=== PATIENT | female | born 2000 | race African-American/Black ===

== ENCOUNTER 2019-08-07 12:35 | Emergency (ER) | payer OTHER ==
[~2019-08-07] VITALS: Ht 160 cm; Wt 57.6 kg
[2019-08-07] MEDS ORDERED: PRENATAL VIT OTC (12:44)
[2019-08-07] MEDS ORDERED: ONDANSETRON 4MG/2ML VIAL (J2405) IV ONE (15:15)
[2019-08-07] MEDS ORDERED: NS 1,000 ML IV ONE (15:15)
[2019-08-07 16:06] LABS: BASO % 0.3 % (0.0-1.0); EOS # 0.1 10^3/uL (0.0-0.5); EOS % 0.8 % (0.0-3.0); HEMATOCRIT 38.2 % (36.0-47.0); HEMOGLOBIN 12.4 g/dl (12.0-15.5); LYMPH # 1.7 10^3/uL (1.5-5.0); LYMPH % 23.3 % (24.0-44.0); MEAN CORPUSCULAR HGB CONC 32.5 g/dl (32.0-36.5); MEAN CORPUSCULAR VOLUME 86.2 fl (80.0-96.0); MONO # 0.4 10^3/uL (0.0-0.8); NEUTROPHILS # 5.2 10^3/uL (1.5-8.5); NEUTROPHILS % 70.3 % (36.0-66.0); PLATELET COUNT, AUTOMATED 223 10^3/uL (150-450); RED BLOOD COUNT 4.43 10^6/uL (4.00-5.40); WHITE BLOOD COUNT 7.4 10^3/uL (4.0-10.0)
[2019-08-07 16:24] LABS: ALBUMIN 3.7 GM/DL (3.2-5.2); ALT/SGPT 21 U/L (12-78); BILIRUBIN,DIRECT 0.1 MG/DL (0.0-0.2); BILIRUBIN,TOTAL 0.3 MG/DL (0.2-1.0); BLOOD UREA NITROGEN 4 MG/DL (7-18); CALCIUM LEVEL 9.4 MG/DL (8.5-10.1); CARBON DIOXIDE LEVEL 24 MEQ/L (21-32); CHLORIDE LEVEL 104 MEQ/L (98-107); CREATININE FOR GFR 0.53 MG/DL (0.55-1.30); GLUCOSE, FASTING 69 MG/DL (70-100); LIPASE 34 U/L (73-393); POTASSIUM SERUM 3.6 MEQ/L (3.5-5.1); SODIUM LEVEL 137 MEQ/L (136-145); TOTAL PROTEIN 7.6 GM/DL (6.4-8.2)
[2019-08-07] MEDS ORDERED: ONDA4TAB6 PO (18:58)
[2019-08-07 19:10] LABS: CHLAMYDIA DNA AMPLIFICATION POSITIVE (NEGATIVE); GC DNA AMPLIFICATION NEGATIVE (NEGATIVE)
[2019-08-07] MEDS ORDERED: AZITHROMYCIN 250 MG TAB PO ONE (19:15)
[2019-08-07 19:44] VITALS: BP 137/88
--- NOTE | 2019-08-08 07:11 | REP ---
Obstetric sonography: History: Supervision of . Abdominal and pelvic pain. Findings: Scanning through the gravid uterus demonstrates a viable single intrauterine gestation in a cephalic lie. motion is observed and heart rate is recorded at 145 beats per minute. An anterior grade zero placenta is seen without evidence of previa or abruption. Amniotic fluid is subjectively normal. Closed cervical length is 3.8 cm measured transabdominally. No extrauterine abnormalities observed. No anomaly is seen. Face and profile and four-chamber heart views are less than optimally seen due to position. The following additional anatomic structures are identified and felt to be unremarkable: cranium, choroid plexus, cavum, cerebellum posterior fossa, lungs, left and right ventricular outflow tract views, diaphragm, left-sided stomach, abdominal wall cord insertion, three-vessel cord, kidneys and bladder, spine, upper and lower extremities. Biometry chart: BPD 3.7 cm 17 weeks 2 days head circumference 14.1 cm 17 weeks 3 days abdominal circumference 11.2 cm 17 weeks 0 days femur length 2.3 cm 17 weeks 0 days humeral length 2.3 cm 17 weeks 0 days HC/AC ratio normal 1.27, cephalic index normal 0.71 estimated weight 178 grams/0 pounds 6 ounces/31st percentile for 17 weeks 3 days. Impression: Viable single intrauterine gestation at 17 weeks 1 day by today's composite sonographic criteria. CALI by today's sonography January 14, 2020. No complication is identified. Face and profile and four-chamber heart views less than optimally achieved due to position. Electronically Signed by Magdy Srivastava MD 08/08/2019 07:53 A
== END 2019-08-07 19:45 | disposition home or self-care (01) ==
LOC: M ED 12:35
DX: O98.319 Other infections with a predominantly sexual mode of transmission complicating pregnancy, unspecified trimester (principal); A74.9 Chlamydial infection, unspecified; O99.89 Other specified diseases and conditions complicating pregnancy, childbirth and the puerperium; R10.2 Pelvic and perineal pain; Z3A.17 17 weeks gestation of pregnancy
CPT/HCPCS: 76811; 80048; 80076; 81001; 83690; 85025; 87086; 87210; 87661; 96374; 99284; J2405

== ENCOUNTER 2019-09-10 14:05 | Emergency (ER) | payer OTHER ==
[~2019-09-10] VITALS: Ht 160 cm; Wt 59.4 kg
[~2019-09-10 14:05] MED LIST: ONDA4TAB6 PO; PRENATAL VIT OTC
[2019-09-10] MEDS ORDERED: ACETAMINOPHEN 500 MG TAB PO ONE (14:45)
--- NOTE | 2019-09-10 15:31 | REP ---
Clinical: 22 weeks with trauma. Comparison: 08/07/2019 . Findings: Examination demonstrates a single live intrauterine in breech presentation. motion is identified by technologist. Placenta is noted anterior and grade zero without evidence for placenta previa or abruption. Amniotic fluid volume is normal. Cervix measures 3.8 cm in length and appears closed. No evidence for nuchal cord. Gestational age by LMP 22 weeks 2 days with CALI 01/12/2020 . FHR equals 133 beats per minute. Amniotic fluid index: 11.4 cm (9.7 - 21.7) Impression: Limited examination demonstrates single live intrauterine in breech presentation. No obvious abnormality noted. Electronically Signed by Christian Castano MD 09/10/2019 03:23 P
[2019-09-10 16:07] VITALS: BP 120/64
[2019-09-10] MEDS ORDERED: PRENTAB9 PO (16:58)
== END 2019-09-10 16:29 | disposition home or self-care (01) ==
LOC: M ED 14:05
DX: O9A.213 Injury, poisoning and certain other consequences of external causes complicating pregnancy, third trimester (principal); S39.012A Strain of muscle, fascia and tendon of lower back, initial encounter; W00.0XXA Fall on same level due to ice and snow, initial encounter; Y92.9 Unspecified place or not applicable; Y93.9 Activity, unspecified; Y99.9 Unspecified external cause status; Z3A.22 22 weeks gestation of pregnancy

== ENCOUNTER 2019-09-10 16:25 | Outpatient (CLI) | payer OTHER ==
[~2019-09-10] VITALS: Ht 160 cm; Wt 59.6 kg
[2019-09-10 16:55] VITALS: BP 114/60
[2019-09-10] MEDS ORDERED: PRENTAB9 PO (16:58)
[2019-09-10 18:32] VITALS: BP 117/58
--- NOTE | 2019-09-10 19:09 | IPNPDOC ---
Text Note Date of Service The patient was seen on 09/10/19. NOTE Triage Note Kim is a 18yo with SIUP at approx 22wk who presented to ER for a fall. She slipped on ice and hit the right side of her body. After that started to have lower abdominal cramping. No vaginal bleeding. Feels good movement. No ctx pattern. No LOF. No f/c/n/v/CP/SOB. No dysuria/frequency/urgency. She was seen in ER first, had formal u/s which was reassuring and did a UA, then sent up to L&D for toco as per my request. Vitals wnl, afebrile General: WDWN, resting comfortably in bed Abdomen: soft, gravid, NTTP Extremities: no edema of BLE, no pain with palpation of calves Doptones + [place]: no ctx on over 1hr of observation Labs: Urinalysis has 1+ blood and 1+ bacteria, 2 WBC, neg nitrite and LE Radiology: TAUS on 09/10/19 Findings: Examination demonstrates a single live intrauterine in breech presentation. motion is identified by technologist. Placenta is noted anterior and grade zero without evidence for placenta previa or abruption. Amniotic fluid volume is normal. Cervix measures 3.8 cm in length and appears closed. No evidence for nuchal cord. Gestational age by LMP 22 weeks 2 days with CALI 01/12/2020 . FHR equals 133 beats per minute. Amniotic fluid index: 11.4 cm (9.7 - 21.7) Impression: Limited examination demonstrates single live intrauterine in breech presentation. No obvious abnormality noted. Assessment: Kim is a 18yo with SIUP at approx 22wk s/p fall onto ice on her right side. NO e/o placental abruption with normal formal u/s, benign exam, no vaginal bleeding. [place] no ctx. Vitals wnl. Does have asymptomatic bacteruria which needs to be treated in . Plan: -safe for discharge home -Rx macrobid 100mg PO BID x5 days (paper script given) -discussed increasing hydration and rest today -tylenol prn -return precautions discussed -keep next routine Centering visit at 24wk MD CASSIDY Rico,Efren, I+O VS, Fishbone, I+O Vital Signs Date Time Temp Pulse Resp B/P (MAP) Pulse Ox O2 Delivery O2 Flow Rate FiO2 09/10/19 16:55 98.5 70 16 114/60 (78) 99 Room Air Iraida Rees MD Sep 10, 2019 19:09
[2019-09-10 19:12] VITALS: BP 122/62
== END 2019-09-10 19:15 | disposition home or self-care (01) ==
LOC: M LDO 16:25
PROVIDERS: ATTEND Obstetrics & Gynecology
DX: Z04.3 Encounter for examination and observation following other accident (principal); Z3A.22 22 weeks gestation of pregnancy; O32.1XX0 Maternal care for breech presentation, not applicable or unspecified; R82.71 Bacteriuria; O23.42 Unspecified infection of urinary tract in pregnancy, second trimester
CPT/HCPCS: G0378; G0463

== ENCOUNTER 2019-11-25 10:24 | Emergency (ER) | payer OTHER ==
[~2019-11-25] VITALS: Ht 160 cm; Wt 66.9 kg
[~2019-11-25 10:24] MED LIST changes: +PRENTAB9 PO
[2019-11-25 10:25] VITALS: BP 130/73
== END 2019-11-25 11:56 | disposition home or self-care (01) ==
LOC: M ED 10:24
DX: O99.612 Diseases of the digestive system complicating pregnancy, second trimester (principal); K14.8 Other diseases of tongue; Z79.899 Other long term (current) drug therapy; Z3A.33 33 weeks gestation of pregnancy

== ENCOUNTER 2020-06-07 18:32 | Emergency (ER) | payer OTHER ==
[~2020-06-07] VITALS: Ht 160 cm; Wt 58.1 kg
[2020-06-07 18:33] VITALS: BP 130/68
[2020-06-07] MEDS ORDERED: NITR-67 PO (19:32)
[2020-06-07] MEDS ORDERED: NITROFURANTOIN (MACROBID) 100 MG CAP PO ONE (19:45)
== END 2020-06-07 19:43 | disposition home or self-care (01) ==
LOC: M ED 18:32
DX: N30.90 Cystitis, unspecified without hematuria (principal)

== ENCOUNTER 2020-08-21 16:05 | Emergency (ER) | payer OTHER ==
[~2020-08-21] VITALS: Ht 160 cm; Wt 58.2 kg
[~2020-08-21 16:05] MED LIST changes: +NITR-67 PO
[2020-08-21] MEDS ORDERED: ACETAMINOPHEN 325 MG TAB PO ONE (17:30)
[2020-08-21 17:46] VITALS: BP 138/79
== END 2020-08-21 18:43 | disposition home or self-care (01) ==
LOC: M ED 16:05
DX: R51.9 Headache, unspecified (principal); J02.9 Acute pharyngitis, unspecified

== ENCOUNTER 2020-11-17 10:45 | Emergency (ER) | payer OTHER ==
[~2020-11-17] VITALS: Ht 160 cm; Wt 57.9 kg
[2020-11-17 11:28] LABS: APPEARANCE, URINE HAZY (CLEAR); BACTERIA, URINE AUTO NEGATIVE (NEGATIVE); BILIRUBIN, URINE AUTO NEGATIVE (NEGATIVE); BLOOD, URINE BLOOD NEGATIVE (NEGATIVE); COLOR, URINE YELLOW (YELLOW); GLUCOSE, URINE (UA) AUTO NEGATIVE (NEGATIVE); KETONE, URINE AUTO TRACE mg/dL (NEGATIVE); LEUKOCYTE ESTERASE, URINE AUTO NEGATIVE (NEGATIVE); MUCUS, URINE LARGE (NEGATIVE); NITRITE, URINE AUTO NEGATIVE (NEGATIVE); PROTEIN, URINE AUTO 1+ mg/dL (NEGATIVE); RBC, URINE AUTO 2 /HPF (0-3); SPECIFIC GRAVITY URINE AUTO 1.028 (1.002-1.035); SQUAMOUS EPITHELIAL CELL UR AU 2 /HPF (0-6); UROBILINOGEN, URINE AUTO 0.2 mg/dL (0.0-2.0); WBC, URINE AUTO 1 /HPF (0-3)
[2020-11-17 11:40] LABS: BASO % 0.4 % (0.0-1.0); EOS # 0.2 10^3/uL (0.0-0.5); EOS % 2.9 % (0.0-3.0); HEMATOCRIT 40.7 % (36.0-47.0); HEMOGLOBIN 13.5 g/dl (12.0-15.5); LYMPH # 1.5 10^3/uL (1.5-5.0); LYMPH % 28.3 % (24.0-44.0); MEAN CORPUSCULAR HEMOGLOBIN 27.8 pg (27.0-33.0); MEAN CORPUSCULAR HGB CONC 33.2 g/dl (32.0-36.5); MEAN CORPUSCULAR VOLUME 83.9 fl (80.0-96.0); MONO # 0.3 10^3/uL (0.0-0.8); MONO % 6.2 % (2.0-8.0); NEUTROPHILS # 3.4 10^3/uL (1.5-8.5); PLATELET COUNT, AUTOMATED 271 10^3/uL (150-450); RED BLOOD COUNT 4.85 10^6/uL (4.00-5.40); WHITE BLOOD COUNT 5.5 10^3/uL (4.0-10.0)
--- NOTE | 2020-11-17 11:45 | REP ---
INDICATION: VAGINAL BLEEDING COMPARISON: None. TECHNIQUE: Transabdominal 1st trimester obstetrical ultrasound with color Doppler evaluation. FINDINGS: Single live early intrauterine is appreciated. Pitkin-rump length of 5.9 cm corresponds to 12 weeks 3 days gestational age with estimated date of delivery 05/29/2021. heart rate equals 155 beats per minute. No gross abnormalities are identified. IMPRESSION: Single live early intrauterine at 12 weeks 3 days gestational age. Complete anatomical assessment should be performed and 19-20 weeks. <Electronically signed by Christian Castano > 11/17/20 1143
[2020-11-17 12:19] VITALS: BP 119/62
== END 2020-11-17 12:23 | disposition home or self-care (01) ==
LOC: M ED 10:45
DX: O20.0 Threatened abortion (principal); Z3A.12 12 weeks gestation of pregnancy

== ENCOUNTER 2020-12-15 04:45 | Emergency (ER) | payer OTHER ==
[~2020-12-15] VITALS: Ht 160 cm; Wt 59.1 kg
[2020-12-15] MEDS ORDERED: LIDOCAINE 1% SDV 5ML VIAL DILUENT ONE (05:35)
[2020-12-15] MEDS ORDERED: cefTRIAXone SOD 1GM VIAL (J0696 PER 250MG) IM ONE (05:35)
[2020-12-15] MEDS ORDERED: CEPH500C PO (05:36)
[2020-12-15] MEDS ORDERED: ACETAMINOPHEN TAB 650MG DOSE (2X325MG) PO ONE (05:50)
[2020-12-15 06:19] VITALS: BP 118/56
== END 2020-12-15 06:21 | disposition home or self-care (01) ==
LOC: M ED 04:45
DX: N39.0 Urinary tract infection, site not specified (principal)
CPT/HCPCS: 81001; 87088; 87186; 99283; J0696